=== PATIENT | male | born 1960 | race African-American/Black ===

== ENCOUNTER 2019-02-18 17:51 | Emergency (ER) | payer OTHER ==
[~2019-02-18] VITALS: Ht 180.3 cm; Wt 90.7 kg
[2019-02-18 17:55] VITALS: BP 150/62; Ht 180.3 cm; Wt 90.7 kg
== END 2019-02-18 18:42 | disposition other institution (70) ==
LOC: ED 17:51
DX: E11.40 Type 2 diabetes mellitus with diabetic neuropathy, unspecified (principal); E78.00 Pure hypercholesterolemia, unspecified; Z88.6 Allergy status to analgesic agent
CPT/HCPCS: 82962

== ENCOUNTER 2019-02-18 17:51 | Emergency (ER) | payer OTHER | END 2019-02-18 18:42 | disposition other institution (70) | LOC: ED 17:51 | DX: Z02.89 Encounter for other administrative examinations (principal) ==